=== PATIENT | female | born 1945 | race Caucasian/White ===

== ENCOUNTER 2021-07-10 10:38 | Emergency (ER) | payer MEDICARE, OTHER ==
[~2021-07-10] VITALS: Ht 152.4 cm; Wt 86.2 kg
[~2021-07-10 10:38] MED LIST: ASPIR-LOW81 MG PO; ATORVASTATIN CA80 MG PO; B-12 DOTS500 MCG PO; CALCIUM 600 +1 EAC5 PO; CLARITIN10 M2 PO; FENOFIBRATE160 MG PO; FLUTICASONE PRO16 GM NAS; HUMULIN N100 UNIT/1 SUB-Q; HYDROCHLOROTHIA25 MG PO; KLOR-CON M1010 MEQ PO; LOSARTAN POTAS100 MG PO; MAGNESIUM400 M1 PO; METOPROLOL SUC100 MG PO; METOPROLOL SUCC50 MG PO; MONTELUKAST SOD10 MG PO; PEPCID40 MG PO; POTASSIUM CHLO10 ME1 PO; POTASSIUM CHLOR8 MEQ PO; PRAVASTATIN SOD40 MG PO; SALSALATE750 MG PO; TOPROL XL100 MG PO; VITAMIN C1000 MG PO; VITAMIN D5000 UNI1 PO; WARFARIN SODIUM5 MG PO; ZANAFLEX4 MG PO; ZINC GLUCONATE100 MG PO
--- NOTE | 2021-07-11 17:26 | EKG ---
[facility] [address] [facility] [facility] [address] [place] [address] Signed Normal sinus rhythm Normal ECG No previous ECGs available Confirmed by ALEJANDRO LUGO MD ([id number]) on 07/11/2021 5:25:54 PM Electronically Signed By: ALEJANDRO LUGO MD 07/11/21 1726 PATIENT NAME: ADITYA LEAL PARI Electrocardiogram DATE OF : 41 PHYSICIAN: ALEJANDRO LUGO MD REPORT #: [id number] REPORT IS CONFIDENTIAL AND NOT TO BE RELEASED WITHOUT AUTHORIZATION
== END 2021-07-10 13:10 | disposition home or self-care (01) ==
LOC: ED 10:38
DX: R07.89 Other chest pain (principal); I10 Essential (primary) hypertension; K21.9 Gastro-esophageal reflux disease without esophagitis; Z79.899 Other long term (current) drug therapy; Z79.01 Long term (current) use of anticoagulants
CPT/HCPCS: 36415; 71045; 80053; 83735; 84484; 85025; 85610; 93005; 93010; 99285-25

== ENCOUNTER 2024-10-15 13:40 | Emergency (ER) | payer MEDICARE, OTHER ==
[~2024-10-15] VITALS: Ht 152.4 cm; Wt 98.8 kg
[~2024-10-15 13:40] MED LIST changes: +AMLODIPINE BES2.5 MG PO; +CIPRO500 MG PO; -CLARITIN10 M2 PO; +CLARITIN10 MG PO; +FAMOTIDINE20 MG PO; +LOSARTAN-HCTZ1 EAC1 PO; +METFORMIN HCL500 M1 PO; +ONDANSETRON HCL4 MG PO; +POTASSIUM CHLOR8 ME1 PO
[2024-10-15] MEDS ORDERED: BENZONATATE100 MG PO (18:36)
[2024-10-15] MEDS ORDERED: VENTOLIN HFA18 GM INH (18:36)
[2024-10-15] MEDS ORDERED: AZITHROMYCIN250 MG PO (18:36)
[2024-10-15 18:43] VITALS: BP 163/84
== END 2024-10-15 18:43 | disposition home or self-care (01) ==
LOC: ED 13:40
DX: R05.1 Acute cough (principal); I10 Essential (primary) hypertension; I48.91 Unspecified atrial fibrillation; Z79.51 Long term (current) use of inhaled steroids; Z79.84 Long term (current) use of oral hypoglycemic drugs; Z79.01 Long term (current) use of anticoagulants; Z79.899 Other long term (current) drug therapy
CPT/HCPCS: 71046; 99283-25

== ENCOUNTER 2024-10-19 11:30 | Inpatient (IN) | payer MEDICARE, OTHER ==
[~2024-10-19] VITALS: Ht 152.4 cm; Wt 101.4 kg
[~2024-10-19 11:30] MED LIST changes: +AZITHROMYCIN250 MG PO; +BENZONATATE100 MG PO; +VENTOLIN HFA18 GM INH
--- OUTSIDE RECORDS SUMMARY | 2024-10-19 11:31 | XMS ---
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 [facility] VISIT COUNT (12 MO.) 2 [facility] TOTAL 2 NOTE: Visits indicate total known visits. ED/UCC VISIT TRACKING (12 MO.) 10/19/2024 11:[address] [facility] TYPE: Emergency COMPLAINT: - ABDOMINAL PAIN 10/15/2024 13:[address] [facility] TYPE: Emergency COMPLAINT: - COUGH DIAGNOSES: - Acute cough - Cough, unspecified - Essential (primary) hypertension - continuous churn buttermaker (current) use of anticoagulants - care home (current) use of inhaled steroids - continuous churn buttermaker (current) use of oral hypoglycemic drugs - Other chcf (current) drug therapy - Unspecified atrial fibrillation INPATIENT VISIT TRACKING (12 MO.) No inpatient visits to display in this time frame [email or web address]
[2024-10-19 11:52] LABS: BASOPHILS 0.2 % (0.1-1.2); EOSINOPHILS 0.1 % (0.7-5.8); HEMATOCRIT 25.1 % (34.1-44.9); HEMOGLOBIN 8.3 g/dL (11.2-15.7); LYMPHOCYTES 17.8 % (19.3-51.7); MCH 29.4 PG (25.6-32.2); MCHC 33.1 g/dL (32.2-35.5); MONOCYTES 7.4 % (4.7-12.5); NEUTROPHILS 74.1 % (34.0-71.1); PLATELET COUNT 357 K/uL (182-369); RBC 2.82 M/uL (3.93-5.22)
[2024-10-19] MEDS ORDERED: ondansetron HCL 4 MG/2 ML VIAL IV ONE (12:00)
[2024-10-19] MEDS ORDERED: ALBUTEROL/IPRATROPIUM 3 ML NEB INH ONE (12:00)
[2024-10-19] MEDS ORDERED: HYDROmorphone HCL 1 MG/ML SYR IV PRN (12:00)
[2024-10-19 12:03] LABS: INR 3.28 (0.80-1.30)
[2024-10-19 12:08] LABS: ALBUMIN 3.4 g/dL (3.4-5.0); ALBUMIN/GLOBULIN RATIO 0.81 (1.1-2.4); ANION GAP 14.9 (7-21); BUN/CREATININE RATIO 21.81 (6.0-28.6); CALCIUM 8.6 mg/dL (8.5-10.1); CREATININE, SERUM 1.65 mg/dL (0.55-1.02); POTASSIUM 4.9 mmol/L (3.5-5.1); PROTEIN, TOTAL 7.6 g/dL (6.4-8.2)
[2024-10-19 12:41] LABS: ABO A; ANTIBODY SCREEN NEGATIVE; RH POSITIVE
[2024-10-19 13:24] LABS: BILIRUBIN, URINE NEGATIVE (negative); BLOOD/HGB, URINE NEGATIVE (Negative); KETONE, URINE NEGATIVE (Negative); LEUK ESTERASE, URINE NEGATIVE (negative); NITRITE, URINE NEGATIVE (negative); PH, URINE 6.5 (5-7)
[2024-10-19] MEDS ORDERED: SODIUM CHLORIDE 0.9% 1,000 ML IV SCH (13:45)
[2024-10-19] MEDS ORDERED: PHYTONADIONE 2.5 MG/2.5 ML SYR PO ONE (13:45)
--- NOTE | 2024-10-19 13:50 | NUR ---
PT TRANSPORTED TO UNIT VIA STRETCHER, PT WAS ABLE TO STAND UP AND AMBULATE TO MED/SURG BED. PT TOLERATED WELL, PT REPORT RECIEVED FROM REYNA TOSCANO. PT VITALS WERE STABLE WELL SKIN ASSESSMENT COMPLETED, PT SKIN IS INTACT WITH SMALL SCATTERED BRUISING ON HIPS AND LOWER ABD, PT DENIES ANY FALLS TO CAUSE THIS. PT HAS NO CURRENT CONCERNS AT THIS TIME AND HAS CALL LIGHT IN REACH.
[2024-10-19 13:58] VITALS: BP 128/65
[2024-10-19] MEDS ORDERED: MORPHINE SULFATE 4 MG/ML VIAL IV PRN (15:45)
[2024-10-19] MEDS ORDERED: GUAIFENESIN/CODEINE 5 ML UDC PO PRN (15:45)
[2024-10-19] MEDS ORDERED: BENZONATATE 100 MG CAP PO PRN (15:45)
[2024-10-19] MEDS ORDERED: OXYCODONE HCL 5 MG TAB PO PRN (15:45)
--- NOTE | 2024-10-19 15:57 | NUR ---
PT ASSISTED TO BATHROOM SBA. ADMINISTERED PRN AND STARTED IVF.
[2024-10-19] MEDS ORDERED: ALBUTEROL SULFATE 0.083% 3 ML VIAL INH PRN (16:00)
[2024-10-19] MEDS ORDERED: ALBUTEROL/IPRATROPIUM 3 ML NEB INH SCH (16:00)
--- NOTE | 2024-10-19 16:06 | NUR ---
PT SITTING UP IN BED AT THIS TIME, PT HAS NO CURRENT CONCERNS AND HAS CALL LIGHT IN REACH.
--- NOTE | 2024-10-19 16:33 | NUR ---
MED REC COMPLETE
--- NOTE | 2024-10-19 17:07 | NUR ---
PT SITTING UP IN BED AT THIS TIME, PT HAS NO CURRENT CONCERNS AND NO NEW BRUISING AT THIS TIME. PT HAS CALL LIGHT IN REACH.
--- NOTE | 2024-10-19 17:21 | NUR ---
NO NEW BRUISING NOTED ON PT ABD/HIPS, PT DENIES NEED FOR PAIN MEDICATION AT THIS TIME WITH ACTIVE BOWEL TONES AT THIS TIME AND ABD BINDER IN PLACE.
[2024-10-19 17:35] LABS: BASOPHILS 0.3 % (0.1-1.2); EOSINOPHILS 0.1 % (0.7-5.8); HEMATOCRIT 21.9 % (34.1-44.9); HEMOGLOBIN 7.2 g/dL (11.2-15.7); MCH 29.5 PG (25.6-32.2); MCHC 32.9 g/dL (32.2-35.5); MCV 89.8 fL (79.4-94.8); MONOCYTES 9.5 % (4.7-12.5); NEUTROPHILS 69.7 % (34.0-71.1); PLATELET COUNT 311 K/uL (182-369); RBC 2.44 M/uL (3.93-5.22)
[2024-10-19 17:44] LABS: ANION GAP 10.9 (7-21); BUN/CREATININE RATIO 22.22 (6.0-28.6); CREATININE, SERUM 1.62 mg/dL (0.55-1.02); POTASSIUM 4.9 mmol/L (3.5-5.1)
[2024-10-19 18:00] VITALS: BP 113/57
[2024-10-19 18:01] VITALS: BP 113/57
[2024-10-19 18:29] LABS: IS CROSSMATCH COMPATIBLE
[2024-10-19 18:34] LABS: ABO A; RH POSITIVE
--- NOTE | 2024-10-19 19:30 | NUR ---
REPORT RECEIVED FROM DAY SHIFT RN. PT LYING IN BED ALERT AND ORIENTED. BLOOD TRANSFUSING WNL. NO S/SX OF TRANSFUSION REACTION. PT DENIES NEEDS. WHITE BOARD UPDATED. CALL LIGHT IN REACH.
--- NOTE | 2024-10-19 20:17 | NUR ---
ASKED MD IF HE WOULD LIKE CHEMISTRY LAB DRAWN WITH CBC AT 0000. NO NEW ORDERS RECEIVED, OKAY WITH CHECKING ADDITIONAL LABS IN AM.
[2024-10-19] MEDS ORDERED: MONTELUKAST SODIUM 10 MG TAB PO SCH (21:00)
[2024-10-19] MEDS ORDERED: FAMOTIDINE 20 MG TAB PO SCH ×2 (21:00)
--- NOTE | 2024-10-19 21:09 | NUR ---
EVENING ASSESSMENT COMPLETE. SCHEDULED MEDS ADMIN PER EMAR. PT REPORTS ABD/RIGHT SIDE PAIN 10/12. PRN FOR PAIN ADMIN PER EMAR. PT DENIES NAUSEA OR SOB. UP TO BR WITH FWW AND 1PA TO VOID. GAIT STEADY. PT DID REPORT WEAKNESS WITH AMB. BACK TO BED. ABD BINDER IN PLACE. MULTIPLE BRUISES NOTED WITHIN OUTLINE. SCD'S ON. BLOOD TRANSFUSING WNL. NO TRANSFUSION REACTION NOTED. PT DENIES QUESTIONS OR CONCERNS. CALL LIGHT IN REACH. BED ALARM FOR SAFETY.
--- NOTE | 2024-10-19 22:38 | NUR ---
BLOOD TRANSFUSION COMPLETE. NO S/SX OF TRANSFUSION REACTION. VS WNL. SpO2 89-93% ON RA. 2L/NC AND CPOX PLACED. PT DENIES SOB. HOB ELEVATED. NO FURTHER NEEDS. BED ALARM FOR SAFETY. CALL LIGHT IN REACH.
[2024-10-20] VITALS (11 sets, daily range): BP systolic 100–133; BP diastolic 47–65
--- NOTE | 2024-10-20 00:11 | NUR ---
LAB IN ROOM FOR SCHEDULED DRAW. SpO2 93% ON 2L/NC. HR 80'S. NO NEEDS AT THIS TIME. BED ALARM IN PLACE. CALL LIGHT IN REACH.
[2024-10-20 00:15] LABS: BASOPHILS 0.2 % (0.1-1.2); EOSINOPHILS 0.2 % (0.7-5.8); HEMATOCRIT 25.7 % (34.1-44.9); HEMOGLOBIN 8.5 g/dL (11.2-15.7); MCH 29.8 PG (25.6-32.2); MCHC 33.1 g/dL (32.2-35.5); MCV 90.2 fL (79.4-94.8); MONOCYTES 9.9 % (4.7-12.5); NEUTROPHILS 66.4 % (34.0-71.1); PLATELET COUNT 279 K/uL (182-369); RBC 2.85 M/uL (3.93-5.22)
--- NOTE | 2024-10-20 00:43 | NUR ---
CALL LIGHT ANSWERED. PATIENT UP TO BATHROOM TO VOID USING 1P SBA AND FWW. PATIENT BACK TO BED. PATIENT DENIES FURTHER NEEDS. CALL LIGHT IN REACH. BED ALARM ON. CPOX IN PLACE. SCDs IN PLACE.
--- NOTE | 2024-10-20 01:10 | NUR ---
CALL LIGHT ANSWERED. PT REPORTS BACK/RIGHT SIDE PAIN 11/11. PRN FOR PAIN ADMIN PER EMAR. VS AND I&O OBTAINED. NO FURTHER NEEDS. CALL LIGHT IN REACH.
--- NOTE | 2024-10-20 03:03 | NUR ---
PT RESTING IN BED WITH EYES CLOSED. RESPIRATIONS EVEN. CALL LIGHT IN REACH.
--- NOTE | 2024-10-20 05:21 | NUR ---
LAB IN FOR MORNING DRAW. VS OBTAINED. 2L/NC IN PLACE. SpO2 LOW 90'S. NO C/O PAIN AT THIS TIME. PT DENIES NEEDS. CALL LIGHT IN REACH.
[2024-10-20 05:29] LABS: BASOPHILS 0.3 % (0.1-1.2); EOSINOPHILS 0.3 % (0.7-5.8); HEMATOCRIT 25.2 % (34.1-44.9); HEMOGLOBIN 8.4 g/dL (11.2-15.7); LYMPHOCYTES 28.5 % (19.3-51.7); MCHC 33.3 g/dL (32.2-35.5); MONOCYTES 9.8 % (4.7-12.5); NEUTROPHILS 60.9 % (34.0-71.1); PLATELET COUNT 275 K/uL (182-369)
[2024-10-20 05:39] LABS: ANION GAP 12.1 (7-21); BUN/CREATININE RATIO 19.23 (6.0-28.6); CALCIUM 8.1 mg/dL (8.5-10.1); CREATININE, SERUM 2.08 mg/dL (0.55-1.02); MAGNESIUM 2.5 mg/dL (1.8-2.4); POTASSIUM 5.1 mmol/L (3.5-5.1)
[2024-10-20 05:47] LABS: INR 1.52 (0.80-1.30); PROTIME 17.7 Sec (11.2-14.2)
--- NOTE | 2024-10-20 06:30 | NUR ---
UPDATED REGARDING MORNING LABS AND LOW URINE OUTPUT. NEW TELEPHONE ORDERS RECEIVED VERIFIED WITH READBACK METHOD.
[2024-10-20] MEDS ORDERED: SODIUM CHLORIDE 0.9% 500 ML IV SCH (06:45)
--- NOTE | 2024-10-20 07:09 | NUR ---
REPORT RECEIVED FROM REYNA CUELLAR. PATIENT RESTING IN BED WITH 2LNC IN PLACE AND CPOX AT BEDSIDE, WAKES WHEN THIS RN ENTERS. NO REQUESTS. BED ALARM ON, PATIENT VERBALIZES UNDERSTANDING OF USING CALL LIGHT. CALL LIGHT IN REACH.
--- NOTE | 2024-10-20 07:49 | NUR ---
IV BOLUS COMPLETED, PATIENT IS SALINE LOCKED AT THIS TIME. SCDs PLACED. 3LNC IN PLACE, CPOX AT BEDSIDE. FLY WORKERDiana MANRIQUEZ ARRIVES TO ROOM, REMAINS IN ROOM AT THIS TIME.
--- NOTE | 2024-10-20 08:20 | NUR ---
MEDICATION ADMINISTERED, SEE MAR. LUNDY FROM RESPIRATORY THERAPY JUST FINISHING A BREATHING TREATMENT. PATIENT IS RESTING IN BED WITH HOB ELEVATED. ASSISTED IN BOOSTING PATIENT UP IN BED BY REYNA SINGLETON. BRUISING TO PATIENT'S LOWER ABDOMEN HAS SPREAD SLIGHTLY BEYOND THE OUTLINES. PATIENT REPORTS HER ENTIRE ABDOMEN IS PAINFUL AND TENDER EVEN TO SOFT PALPATION. BOWEL TONES ARE ACTIVE, BUT DISTANT. PATIENT DENIES NAUSEA. PATIENT BEING TRIALED ON ROOM AIR BY KAMRON, RESPIRATORY THERAPY. DURING ASSESSMENT PATIENT SPO2 DECREASES AND SUSTAINS 88%. 2LNC REAPPLIED, PATIENT'S SPO2 SUSTAINS GREATER THAN 92%. PATIENT'S ABDOMINAL BINDER IS IN PLACE, REMOVED FOR ASSESSMENT BUT REAPPLIED. PATIENT STATES " LONG I DON'T MOVE AROUND MY PAIN IS BARELY THERE AT ALL BUT SOON I MOVE IT WILL WORSEN." DENIES PAIN MEDICATION AT THIS TIME. BREAKFAST TRAY ARRIVES. IMAGING CONTACTED TO MAKE SURE PATIENT IS OKAY TO EAT, IMAGING STATES THIS IS OKAY. PATIENT BEGINS EATING BREAKFAST. PATIENT IS REQUESTING JUICE. CALL LIGHT AND PERSONAL BELONGINGS IN REACH.
[2024-10-20] MEDS ORDERED: POLYETHYLENE GLYCOL 3350 1 PACKET PO SCH (09:00)
[2024-10-20] MEDS ORDERED: METOPROLOL SUCCINATE 50 MG TABCR PO SCH (09:00)
[2024-10-20] MEDS ORDERED: AZITHROMYCIN 250 MG TAB PO ONE (09:00)
[2024-10-20] MEDS ORDERED: SENNOSIDES/DOCUSATE 1 EA TAB PO SCH (09:00)
--- NOTE | 2024-10-20 09:00 | NUR ---
UR CLINICAL REVIEW: 2 MN FOR VERSALUS-PER SHELTER SUPERVISOR MEET INPT FOR RECTUS SHEATH HEMATOMA WITH NEED FOR PAIN CONTROL/MONITORING MEDICARE INPT 10/19/24 @ 3984 ORDER MATCHES REG NO AUTH REQUIRED PER MEDICARE GUIDELINES DISCHARGE TO HOME WHEN STABLE
--- NOTE | 2024-10-20 09:35 | NUR ---
PT NOT AVAILABLE FOR VISIT. PROVIDED PRAYER.
--- NOTE | 2024-10-20 09:37 | NUR ---
MD IN TO SEE AND ASSESS PATIENT. ALL QUESTIONS ANSWERED AND CONCERNS ADDRESSED. PATIENT RESTING IN BED WITH HOB ELEVATED, ABDOMINAL BINDER REMAINS IN PLACE. 2LNC IN PLACE WITH CPOX AT BEDSIDE. PATIENT HAS VISITOR PRESENT IN ROOM. PATIENT HAS NO REQUESTS, CALL LIGHT AND PERSONAL BELONGINGS IN REACH.
--- NOTE | 2024-10-20 09:49 | NUR ---
ALERT AND ORIENTED IN BED, FAMILY MEMBER IN ROOM. DEMOGRAPHICS VERIFIED WITH PATIENT. SHE LIVES IN SINGLE LEVEL HOME, ALONE. THERE IS ONE SMALL STEP TO GET INSIDE. STATES SHE HAS NO DME. SHE DRIVES AT [place]. DENIES ANY FINANCIAL DIFFICULTY. SHE IS ABLE TO PAY UTILITIES AND OBTAIN FOOD AND MEDICATIONS WITHOUT DIFFICULTY. STATES SHE PLANS TO DC TO HOME WHEN MEDICALLY READY.
[2024-10-20 10:30] LABS: ANION GAP 12.6 (7-21); BUN/CREATININE RATIO 18.26 (6.0-28.6); CREATININE, SERUM 2.3 mg/dL (0.55-1.02); POTASSIUM 4.6 mmol/L (3.5-5.1)
--- NOTE | 2024-10-20 10:56 | NUR ---
NOTIFIED OF PATIENT'S LAB. NO NEW ORDERS AT THIS TIME. IMAGING ARRIVES FOR PATIENT.
--- NOTE | 2024-10-20 11:04 | NUR ---
PATIENT ASSISTED WITH MINIMAL ASSIST TO TRANSFER FROM BED TO WHEELCHAIR AND IS CURRENTLY OFF THE FLOOR FOR IMAGING. PATIENT'S DAUGHTER IN ROOM, PATIENT'S DAUGHTER UPDATED ON PLAN OF CARE PER PATIENT'S REQUEST. DOMINIC MANRIQUEZ ARRIVES TO ROOM AND BEGINS STRIPPING THE BED.
--- NOTE | 2024-10-20 11:29 | NUR ---
PATIENT RETURNS FROM IMAGING, MINIMAL ASSIST FROM CHAIR TO BED. 2LNC IN PLACE, CPOX AT BEDSIDE, SCDs ON. PATIENT STATES PAIN IS "OKAY RIGHT NOW" AND DECLINES PAIN MEDICATIONS. PATIENT HAS NO OTHER REQUESTS, CALL LIGHT AND PERSONAL BELONGINGS IN REACH. PATIENT'S DAUGHTER REMAINS PRESENT IN ROOM THROUGHOUT.
--- NOTE | 2024-10-20 11:41 | NUR ---
PATIENT NOTED TO COUGH ONCE, HARSH AND BARKY. PRN COUGH MEDICATION ADMINISTERED. PATIENT USES ACAPELLA X10, ACAPELLA REMAINS AT BEDSIDE. PATIENT HAS SCHEDULED NEB TREATMENT DUE SOON. NO OTHER REQUESTS, CALL LIGHT AND PERSONAL BELONGINGS AT BEDSIDE, DAUGHTER REMAINS IN ROOM.
[2024-10-20] MEDS ORDERED: PHARMACY RENAL DOSE ADJUSTMENT 1 DOSE MISC PO SCH (12:00)
[2024-10-20] MEDS ORDERED: LIDOCAINE 2% VISCOUS 6 ML SYR TOP ONE (12:45)
[2024-10-20 12:46] LABS: BILIRUBIN, URINE NEGATIVE (negative); BLOOD/HGB, URINE NEGATIVE (Negative); KETONE, URINE TRACE (Negative); LEUK ESTERASE, URINE TRACE (negative); NITRITE, URINE NEGATIVE (negative); PH, URINE 5.5 (5-7)
[2024-10-20 12:53] LABS: BACTERIA, URINE RARE /hpf (negative); CASTS, URINE NONE SEEN \\lpf; COLLECTION TYPE, URINE CLEAN CATCH; CRYSTALS, URINE NONE SEEN (0-1+); EPITHELIAL CELLS, URINE SQUAMOUS 4+ /lpf (0-1+); RED BLOOD CELLS, URINE 0-1 /hpf (0-5); REFLEX CULTURE, URINE No (No)
--- NOTE | 2024-10-20 13:10 | NUR ---
16FR ZAPIEN CATH PLACED WITH DOMINIC MANRIQUEZ ASSISTING. PATIENT TOLERATES WELL. STAT LOCK TO LEFT THIGH, CATHETER BAG DRAINING FREELY TO LEFT SIDE OF BED. SCANT AMOUNT OF CLEAR, YELLOW URINE NOTED TO TUBING. PATIENT'S SON ARRIVES TO VISIT, DECLAN ALFARO REMAINS IN ROOM AT THIS TIME.
--- NOTE | 2024-10-20 14:00 | NUR ---
PATIENT REPORTS SOME BURNING POST-ZAPIEN CATH INSERTION AND IS REQUESTING PAIN MEDICATION. MEDICATION ADMINISTERED, SEE MAR. ZAPIEN CATHETER IS CLAMPED AT THIS TIME FOR ULTRASOUND. CLEAR, YELLOW URINE NOTED IN TUBING. PATIENT REPORTS THAT SHE HAD SOME MILD DYSURIA PRIOR TO HER HOSPITAL ADMISSION AND THAT HER URINE OUTPUT HAS BEEN DECREASED FOR "ABOUT A WEEK OR SO". PATIENT HAS NO OTHER REQUESTS AT THIS TIME, CALL LIGHT AND PERSONAL BELONGINGS IN REACH.
[2024-10-20 14:19] LABS: BILIRUBIN, URINE NEGATIVE (negative); BLOOD/HGB, URINE TRACE-I (Negative); KETONE, URINE NEGATIVE (Negative); LEUK ESTERASE, URINE NEGATIVE (negative); NITRITE, URINE NEGATIVE (negative); PH, URINE 5.5 (5-7)
[2024-10-20 14:28] LABS: BACTERIA, URINE NONE SEEN /hpf (negative); CASTS, URINE NONE SEEN \\lpf; CRYSTALS, URINE NONE SEEN (0-1+); EPITHELIAL CELLS, URINE SQUAMOUS 1+ /lpf (0-1+); RED BLOOD CELLS, URINE 0-1 /hpf (0-5); WHITE BLOOD CELLS, URINE 0-1 /HPF (0-5)
[2024-10-20 14:29] LABS: COLLECTION TYPE, URINE CLEAN CATCH; REFLEX CULTURE, URINE No (No)
--- NOTE | 2024-10-20 15:09 | NUR ---
PATIENT REPORTS ZAPIEN CATH DISCOMFORT IS DIMINISHING, SCANT AMOUNT OF CLEAR YELLOW URINE NOTED IN TUBING. BAG PREVIOUSLY UNCLAMPED AFTER RENAL ULTRASOUND WAS COMPLETED. PATIENT HAS MULTIPLE VISITORS PRESENT AT THIS TIME. FRESH ICE WATER PROVIDED. NO OTHER REQUESTS, CALL LIGHT AND PERSONAL BELONGINGS IN REACH.
--- NOTE | 2024-10-20 15:43 | NUR ---
PATIENT IS RESTING IN BED WITH HOB ELEVATED, ALL OF HER VISITORS HAVE LEFT. PATIENT REPORTS SHE WILL LIKELY TAKE A NAP NOW. SCDs REAPPLIED. PATIENT HAS REMOVED HER OXYGEN AND IS CURRENTLY ON ROOM AIR AND SUSTAINING AN SPO2>92% ON CPOX. PATIENT EDUCATED ON OXYGEN USE AND OXYGENATION, VERBALIZES UNDERSTANDING OF WEARING OXYGEN SHOULD HER OXYGEN LEVEL DECREASE. ZAPIEN CATH IS FREELY DRAINING TO BEDSIDE WITH CLEAR, YELLOW URINE NOTED TO BE DRAINING THROUGH TUBING. NO REQUESTS, CALL LIGHT AND PERSONAL BELONGINGS IN REACH.
--- NOTE | 2024-10-20 15:47 | NUR ---
IN PATIENT'S CPOX IS ALARMING. 2LNC REAPPLIED, PATIENT VERBALIZES UNDERSTANDING. NO REQUESTS, CALL LIGHT AND PERSONAL BELONGINGS IN REACH.
--- NOTE | 2024-10-20 16:49 | NUR ---
PATIENT RESTING IN BED WITH TWO VISITORS AT BEDSIDE. FRESH ICE WATER PROVIDED. SCANT AMOUNT OF CLEAR, YELLOW URINE NOTED IN ZAPIEN CATH BAG. PATIENT REQUESTS HER VISITORS BE UPDATED ON PLAN OF CARE - COMPLETED, ALL QUESTIONS ANSWERED. PATIENT HAS NO OTHER REQUESTS, CALL LIGHT AND PERSONAL BELONGINGS IN REACH.
--- NOTE | 2024-10-20 20:13 | NUR ---
Patient in bed, alert and oriented x3, no acute distress. Patient in on 2L nc, respirations non labored, sp02 93%. Abdominal binder in place. Notable lower abdominal brusing-previously marked. Patient report 6/10 right sided abdominal pain. Oxycodone 5mg po and tessalon perles 100mg po admin at this time for cough/pain. Patient denies further needs. Fresh water provided to patient. Call light within reach.
--- NOTE | 2024-10-20 21:03 | NUR ---
MILITARY COOK OBTAINED VITALS AND I&O. ZAPIEN BAG EMPTIED. PT STATES NO NEEDS AT THIS TIME. CALL LIGHT WITHIN REACH.
[2024-10-21] VITALS (8 sets, daily range): BP systolic 105–133; BP diastolic 52–75
--- NOTE | 2024-10-21 01:00 | NUR ---
Patient resting in bed, eyes closed, respirations non labored. Pt on 2L oxygen per nc, sp02 93%. Call light within reach.
--- NOTE | 2024-10-21 03:13 | NUR ---
THIS RN ASSUMING CARE OF PATIENT. PATIENT RESTING IN BED. DENIES NEEDS AT THIS TIME. CALL LIGHT IN REACH.
[2024-10-21 05:21] LABS: BASOPHILS 0.3 % (0.1-1.2); EOSINOPHILS 1.5 % (0.7-5.8); HEMOGLOBIN 7.3 g/dL (11.2-15.7); LYMPHOCYTES 25.1 % (19.3-51.7); MCH 29.7 PG (25.6-32.2); MCHC 33.2 g/dL (32.2-35.5); MCV 89.4 fL (79.4-94.8); MONOCYTES 10.9 % (4.7-12.5); NEUTROPHILS 61.8 % (34.0-71.1); PLATELET COUNT 260 K/uL (182-369); RBC 2.46 M/uL (3.93-5.22)
[2024-10-21 05:34] LABS: ANION GAP 11.1 (7-21); BUN/CREATININE RATIO 19.4 (6.0-28.6); CALCIUM 8.1 mg/dL (8.5-10.1); CREATININE, SERUM 2.37 mg/dL (0.55-1.02); MAGNESIUM 2.4 mg/dL (1.8-2.4); POTASSIUM 5.1 mmol/L (3.5-5.1)
--- NOTE | 2024-10-21 05:44 | NUR ---
LINE THERAPIST OBTAINED VITALS AND I&O. ZAPIEN BAG EMPTIED. PT STATES NO NEEDS AT THIS TIME. CALL LIGHT WITHIN REACH.
[2024-10-21 05:47] LABS: INR 1.17 (0.80-1.30); PROTIME 14.4 Sec (11.2-14.2)
--- NOTE | 2024-10-21 06:47 | NUR ---
THIS RN CALLED MD CALDWELL REGARDING PATIENTS MORNING LAB RESULTS. NO NEW ORDERS AT THIS TIME.
--- NOTE | 2024-10-21 07:20 | NUR ---
RECIEVED REPORT BY REYNA PEMBERTON. PATIENT AWAKE, SHE IS ALERT AND ORIENTED. SHE HAS HER ABDOMEN BINDER IN PLACE. PATIENT WAS WEANED TO ROOM AIR, SAT >92%. PATIENT REPORTS NO NEEDS, CALL LIGHT AT REACH.
[2024-10-21] MEDS ORDERED: FUROSEMIDE 100 MG/10 ML VIAL IV ONE (08:00)
--- NOTE | 2024-10-21 08:15 | NUR ---
INTO SEE PATIENT. PATIENT STATES SHE IS GOING HOME WHEN MEDICALLY CLEARED. PATIENT LIVES ALONE. NO CM NEEDS AT THIS TIME. PATIENT POTENTIALLY COULD BENEFIT FROM HH PENDING PT/OT FUTHER RECCOMENDATIONS.
[2024-10-21] MEDS ORDERED: LACTULOSE 20 GM/30 ML CUP PO ONE (11:45)
[2024-10-21 12:34] LABS: ANION GAP 11.1 (7-21); BUN/CREATININE RATIO 22.06 (6.0-28.6); CALCIUM 8.6 mg/dL (8.5-10.1); CREATININE, SERUM 2.13 mg/dL (0.55-1.02); POTASSIUM 5.1 mmol/L (3.5-5.1)
--- NOTE | 2024-10-21 12:53 | NUR ---
PT BACK TO BED, REQUESTS EDUCATION ON CURRENT ILLNESS IN WRITTEN FORM, GIVEN. PT STATES SHE WOULD LIKE TO REST AT THIS TIME, STATES NO FURTHER NEEDS, CALL LIGHT WITHIN REACH.
--- NOTE | 2024-10-21 14:45 | NUR ---
THIS RN COLLECTED URINE SAMPLE FROM ZAPIEN CATHETER, CLAMPED FOR 30 MINUTES FOR SAMPLE OUT OF PORT. PT TOLERATED, NO ISSUES. PT REQUESTED MEDICINE FOR COUGH AT THIS TIME, PRN MEDS GIVEN - SEE JUL. PT DAUGHTER AT BEDSIDE, INQUIRING ABOUT A SHOWER CHAIR, GRAB BARS AND SOME DME EQUIPMENT WHEN PATIENT IS DISCHARGED. CASE MGMT - SHEKHAR NOTIFIED AND WILL COME MEET WITH DAUGHTER/PATIENT IN THE ROOM.
[2024-10-21 14:50] LABS: CREATININE, RANDOM URINE 20.73 mg/dL (NOT ESTABLISHED)
--- NOTE | 2024-10-21 16:17 | NUR ---
PT BACK TO BED AFTER SHOWER, ABDOMINAL BINDER IN PLACE. PT STATES NO FURTHER NEEDS AT THIS TIME, CALL LIGHT WTIHIN REACH.
--- NOTE | 2024-10-21 17:19 | NUR ---
PT HAS EMESIS, CONTINUES TO HAVE NAUSEA. THIS RN CALLS DR. JAVI MD STATES TO ORDER ZOFRAN 4MG Q6PRN. ORDER ENTERED, REPEAT BACK PERFORMED.
[2024-10-21] MEDS ORDERED: ondansetron HCL 4 MG/2 ML VIAL IV PRN (17:30)
--- NOTE | 2024-10-21 19:41 | NUR ---
REPORT RECEIVED FROM DAY SHIFT RN. PT RESTING IN BED. SAFETY PRECAUTIONS MAINTAINED. CALL LIGHT WITHIN REACH. WILL CONITNUE TO MONITOR.
--- NOTE | 2024-10-21 20:25 | NUR ---
PT ASSESSED AND MEDICATIONS GIVEN. VSS. PT WEARING O2 AT 2L NC, SATING WELL. ZAPIEN IN PLACE AND DRAINING WELL PER GRAVITY, GOOD OUTPUT NOTED. PT CONTINUES ON THE FLUID RESTRICTION OF 1500ML/DAY. ABDOMINAL BINDER IN PLACE. SAFETY PRECAUTIONS MAINTAINED. CALL LIGHT WITHIN REACH. WILL CONTINUE TO MONITOR.
[2024-10-22] VITALS (10 sets, daily range): BP systolic 112–135; BP diastolic 51–68
[2024-10-22 05:25] LABS: BASOPHILS 0.2 % (0.1-1.2); EOSINOPHILS 0.9 % (0.7-5.8); HEMOGLOBIN 8.3 g/dL (11.2-15.7); MCHC 33.2 g/dL (32.2-35.5); MCV 90.3 fL (79.4-94.8); MONOCYTES 8.9 % (4.7-12.5); NEUTROPHILS 70.6 % (34.0-71.1); PLATELET COUNT 333 K/uL (182-369); RBC 2.77 M/uL (3.93-5.22)
--- NOTE | 2024-10-22 05:35 | NUR ---
FASHION BUYER OBTAINED VITALS AND I&O. ZAPIEN BAG EMPTIED. PT STATES NO NEEDS AT THIS TIME. CALL LIGHT WITHIN REACH.
[2024-10-22 05:38] LABS: ANION GAP 15.1 (7-21); BUN/CREATININE RATIO 24.71 (6.0-28.6); CALCIUM 8.9 mg/dL (8.5-10.1); CREATININE, SERUM 1.74 mg/dL (0.55-1.02); MAGNESIUM 2.6 mg/dL (1.8-2.4); POTASSIUM 4.1 mmol/L (3.5-5.1)
[2024-10-22 06:04] LABS: INR 1.09 (0.80-1.30); PROTIME 13.7 Sec (11.2-14.2)
--- NOTE | 2024-10-22 06:10 | NUR ---
PT RESTED WELL DURING THE SHIFT. VSS. PT WEARING O2 AT 2L NC, SATING WELL. PT ON CPOX. ZAPIEN IN PLACE AND DRAINING WELL PER GRAVITY, GOOD OUTPUT NOTED. PT UP X1 WITH WALKER TO BATHROOM. ABDOMINAL BINDER IN PLACE. SAFETY PRECAUTIONS MAINTAINED. CALL LIGHT WITHIN REACH. WILL CONTINUE TO MONITOR.
--- NOTE | 2024-10-22 07:10 | NUR ---
REPORT RECIEVED FROM REYNA SILVERIO. PATIENT RESTING IN BED ON HER BACK WITH HER EYES CLOSED. EVEN AND UNLABORED RESPIRATIONS NOTED. CALL LIGHT AND PERSONAL BELONGINGS ARE WITHIN REACH.
--- NOTE | 2024-10-22 08:54 | NUR ---
DOMINIC JENSEN IN ROOM ASSISTING PATIENT TO BATHROOM. PATIENT WITHOUT ANY NEEDS FROM THIS RN AT THIS TIME.
--- NOTE | 2024-10-22 09:20 | NUR ---
PATIENT OUT OF ROOM WORKING WITH OT AT THIS TIME.
--- NOTE | 2024-10-22 09:30 | NUR ---
INTO SEE PATIENT. PATIENT PLANS TO D/C HOME AT TIME OF DISCHARGE. IMM LETTER COMPLETED. NO CM NEEDS.
--- NOTE | 2024-10-22 09:40 | NUR ---
PATIENT RESTING IN BED. DR CALDWELL AT BEDSIDE. PATIENT REPORTING NOT ABLE TO HAVE A BOWEL MOVEMENT, DR CALDWELL STATES HE WILL ADD SUPPOSITORY ORDER. PATIENT ASSESSMENT COMPLETED. PATIENT WITHOUT FURHTER NEEDS AT THIS TIME. CALL LIGHT AND PERSONAL BELONIGNGS ARE WITHIN REACH. FRESH ICE WATER PROVIDED.
[2024-10-22] MEDS ORDERED: bisacodyL 10 MG SUPP PR ONE (09:45)
--- NOTE | 2024-10-22 09:45 | NUR ---
PATIENT REQUESTING TO NOT HAVE CPOX. DR CALDWELL NOTIFIED AND GAVE VERBAL ORDER FOR PATIENT TO NOT USE CPOX.
--- NOTE | 2024-10-22 10:15 | NUR ---
PATIENT MEDICATED PER EMAR. SUPPOSITORY GIVEN, PATIENT TOLERATED WELL. PATIENT WITHOUT FURTHER NEEDS AT THIS TIME. CALL LIGHT AND PERSONAL BELONGINGS ARE WITHIN REACH.
--- NOTE | 2024-10-22 12:39 | NUR ---
PATIENT AMBULATES WITH SUPERVISION ONLY AND FWW TO RESTROOM TO SIT ON TOILET. PATIENT VERBALIZES UNDERSTANDING OF PULLING CORD WHEN FINISHED.
--- NOTE | 2024-10-22 12:53 | NUR ---
PATIENT IS IN HER BED AT THIS TIME, NEEDED ASSISTANCE TO THE REST ROOM, CHARTED VITALS AND I&O'S, CALL LIGHT WITH IN REACH AND NOTHING ELSE NEEDED AT THIS TIME. RESPITORY SHOWED UP AND SHE IS GETTING A TREATMENT NOW.
--- NOTE | 2024-10-22 13:45 | NUR ---
PATIENT SITTING UP IN BED RESTING WITH HER EYES CLOSED. EVEN AND UNLABORED RESPIRATIONS NOTED. CALL LIGHT AND PERSONAL BELONGINGS ARE WITHIN REACH.
--- NOTE | 2024-10-22 14:53 | NUR ---
PATIENT SITTING UP IN BED VISITING WITH HER DAUGHTER. PATIENT WITHOUT FURTHER NEEDS AT THIS TIME. CALL LIGHT AND PERSONAL BELONGINGS ARE WITHIN REACH.
[2024-10-22 15:01] LABS: OSMOLALITY 279 mOsm/kg (280-303)
--- NOTE | 2024-10-22 15:03 | NUR ---
IV FLUSHED WITH 10ML OF NS, DRESSING INTACT. PATIENT VISITOR LEFT, PATIENT REQUESTING TO GET SOME REST THEN WOULD LIKE TO GET UP AND AMBULATE AT A LATER TIME. PATIENT WITHOUT FURTHER NEEDS AT THIS TIME. CALL LIGHT AND PERSONAL BELONGINGS ARE WITHIN REACH.
--- NOTE | 2024-10-22 16:55 | NUR ---
PATIENT RESTING IN BED WITH HER EYES CLOSED. EVEN AND UNLABORED RESPIRATIONS NOTED. CALL LIGHT AND PERSONAL BELONGINGS ARE WITHIN REACH.
--- NOTE | 2024-10-22 17:07 | NUR ---
HELD TREATMENT PT IS SLEEPING AND HAD REQUESTED ON LAST TREATMENT TO NOT BE DESTRUBED BECAUSE SHE WAS NEEDING REST .
[2024-10-22] MEDS ORDERED: FLUTICASONE PROPIONATE 50 MCG BTL NAS SCH (18:30)
--- NOTE | 2024-10-22 19:36 | NUR ---
REPORT RECEIVED FROM DAY SHIFT RN. PT RESTING IN BED. PT DENIED ANY PAIN. DAFETY PRECAUTIONS MAINTAINED. CALL LIGHT WITHIN REACH. WILL CONTINUE TO MONITOR.
--- NOTE | 2024-10-22 20:55 | NUR ---
PT ASSESSED AND MEDICATIONS GIVEN. VSS. PT DENIED ANY PAIN. ZAPIEN IN PLACE AND DRAINING WELL PER GRAVITY, GOOD OUTPUT NOTED. ZAPIEN CARE DONE. PT CONTINUES TO REFUSE TO WEAR SCD'S. SAFETY PRECAUTIONS MAINTAINED. CALL LIGHT WITHIN REACH. WILL CONTINUE TO MONITOR.
[2024-10-22] MEDS ORDERED: FAMOTIDINE 20 MG TAB PO SCH (21:00)
[2024-10-23] VITALS (8 sets, daily range): BP systolic 116–141; BP diastolic 49–58
--- NOTE | 2024-10-23 03:23 | NUR ---
ASSISTED TO BR, SBA W/ FWW. PT VOID X 1 AND SMALL LOOSE BM. FRESH ICE WATER PROVIDED. CALL LIGHT WITHIN REACH.
[2024-10-23 05:32] LABS: BASOPHILS 0.3 % (0.1-1.2); EOSINOPHILS 1.1 % (0.7-5.8); HEMATOCRIT 24.7 % (34.1-44.9); HEMOGLOBIN 8.4 g/dL (11.2-15.7); LYMPHOCYTES 20.3 % (19.3-51.7); MCV 88.2 fL (79.4-94.8); MONOCYTES 9.3 % (4.7-12.5); NEUTROPHILS 68.6 % (34.0-71.1); PLATELET COUNT 368 K/uL (182-369)
[2024-10-23 05:44] LABS: BUN/CREATININE RATIO 26.61 (6.0-28.6); CALCIUM 9.3 mg/dL (8.5-10.1); CREATININE, SERUM 1.24 mg/dL (0.55-1.02); MAGNESIUM 2.4 mg/dL (1.8-2.4)
[2024-10-23 05:55] LABS: INR 1.08 (0.80-1.30); PROTIME 13.6 Sec (11.2-14.2)
--- NOTE | 2024-10-23 06:15 | NUR ---
PT RESTED WELL THROUGHOUT THE SHIFT. VSS. PT DENIED ANY PAIN. PT UP TO THE BATHROOM SBA WITH WALKER. PT HAD MULTIPLE BM'S. ZAPIEN IN PLACE AND DRAINING WELL PER GRAITY, GOOD OUTPUT NOTED. SAFETY PRECAUTIONS MAINTAINED. CALL LIGHT WITHIN REACH. WILL CONTINUE TO MONITOR.
--- NOTE | 2024-10-23 07:10 | NUR ---
REPORT RECIEVED FROM REYNA SILVERIO. PATIENT SITTING UP IN BED AND WITHOUT ANY NEEDS AT THIS TIME. CALL LIGHT AND PERSONAL BELONGINGS ARE WITHIN REACH.
[2024-10-23] MEDS ORDERED: FUROSEMIDE 40 MG/4 ML VIAL IV ONE (07:45)
--- NOTE | 2024-10-23 07:48 | NUR ---
PATIENT IN CHAIR AT THIS TIME. DRILLING MANAGER CHARTED HOURLY ROUNDS, DRILLING MANAGER CHANGED PATIENTS LINENS AND ASSISTED PATIENT FROM BED TO CHAIR. CALL LIGHT WITHIN REACH, NO FURTHER NEEDS.
--- NOTE | 2024-10-23 08:20 | NUR ---
PATIENT REPORTING CHEST/ABD PAIN FROM COUGHING. DR CALDWELL NOTIFIED AND STATES HE WILL ADD PRN ORDER FOR TYLENOL.
[2024-10-23] MEDS ORDERED: ACETAMINOPHEN 500 MG TAB PO PRN (08:30)
--- NOTE | 2024-10-23 08:51 | NUR ---
PATIENT IS NON-COMPLIANT WITH CPAP FOR JARRET. DISCUSSED CONCERN AND PLANS WITH PRIMARY NURSE, CHARGE NURSE AND DR CALDWELL. CPOX AND O2 ORDER TO REMAIN IN PLACE AND STAFF TO DOCUMENT REFUSAL BY PATIENT OF EITHER ORDER.
--- NOTE | 2024-10-23 09:14 | NUR ---
PATIENT MEDICATED PER EMAR. PATIENT TRANSFERED BACK TO BED FROM CHAIR VIA SBA WITH THE FWW. PATIENT RESTING IN BED AND WANTING TO SLEEP. PATIENT ASSESSMENT COMPLETED. IV FLUSHED WITH 10ML OF NS, DRESSING IS INTACT. PATIENT WITHOUT FURTHER NEEDS AT THIS TIME. CALL LIGHT AND PERSONAL BELONGINGS ARE WITHIN REACH. VITAL SIGNS TAKEN AND ARE STABLE.
--- NOTE | 2024-10-23 09:48 | NUR ---
PATIENT IN BED AT THIS TIME. MENHADEN VESSEL PILOT CHARTED I&O'S, REYNA BERNSTEIN CHARTED VITALS. [facility], NO FURTHER NEEDS.
[2024-10-23] MEDS ORDERED: guaiFENesin 600 MG TABCR PO SCH (10:15)
--- NOTE | 2024-10-23 10:25 | NUR ---
PATIENT IN BED AT THIS TIME. DIETITIAN TEACHER PROVIDED PATIENT WITH CATHETER CARE. CALL LIGHT WITHIN REACH, NO FURTHER NEEDS AT THIS BHAVIK.E
--- NOTE | 2024-10-23 10:49 | NUR ---
PATIENT RESTING IN BED WITH HER EYES CLOSED. EVEN AND UNLABORED RESPIRATIONS NOTED. CALL LIGHT AND PERSONAL BELONGINGS ARE WITHIN REACH. PATIENT IS ON ROOM AIR AND IS 90%. CPOX AT BEDSIDE.
--- NOTE | 2024-10-23 11:55 | NUR ---
RT AT BEDSIDE.
--- NOTE | 2024-10-23 12:20 | NUR ---
PATIENT MEDICATED PER EMAR. PATIENT TRANSFERED FROM BED TO CHAIR FOR LUNCH. FRESH ICE WATER PROVIDED. PATIENT WITHOUT FURTHER NEEDS AT THIS TIME. CALL LIGHT AND PERSONAL BELONGINGS ARE WITHIN REACH.
--- NOTE | 2024-10-23 13:25 | NUR ---
PATIENT UP WALKING THE HALLS WITH DOMINIC TERESA.
--- NOTE | 2024-10-23 13:32 | NUR ---
PATIENT IN BED AT THIS TIME. TUMBLER DRIER OPERATOR CHARTED VITALS AND I&O'S. PATIENT WALKED 1 LAP AROUND HALLS. CALL LIGHT WITHIN REACH, NO FURTHER NEEDS.
--- NOTE | 2024-10-23 15:15 | NUR ---
PATIENT RESTING IN BED. WARM BLANKET PROVIDED. PATIENT STATES SHE WOULD LIKE TO TAKE A NAP. PATIENT WITHOUT FURTHER NEEDS AT THIS TIME. CALL LIGHT AND PERSONAL BELONGINGS ARE WITHIN REACH.
--- NOTE | 2024-10-23 15:17 | NUR ---
PT C/O COUGH. MEDICATED WITH TESSALON RADHA X1.
[2024-10-23 15:38] LABS: URINE OSMOLALITY 228 mOsm/kg (50-800)
--- NOTE | 2024-10-23 16:30 | NUR ---
PT JUST HAD COMPLETED BREATHING TREATMENT WITH RT, RT CAME TO THIS NURSE AND STATES PATIENT IS HAVING PAIN DUE TO COUGHING POST TREATMENT. PRN MEDS GIVEN FOR 4/10 ABDOMINAL PAIN FROM COUGHING. PT NOW ON THE PHONE WITH FRIEND, NO OTHER NEEDS AT THIS TIME. CALL LIGHT WITHIN REACH.
--- NOTE | 2024-10-23 16:31 | NUR ---
PATIENT BED AT THIS TIME. MUSHROOM PACKER CHARTED HOURLY ROUNDS. MUSHROOM PACKER ASKED PATIENT IF SHE WANTED A SHOWER OR BED BATH, PATIENT STATED SHE DID NOT WANT A SHOWER OF NOW. CALL LIGHT WITHIN REACH, NO FURTHER NEEDS AT THIS TIME.
--- NOTE | 2024-10-23 17:48 | NUR ---
PATIENT IN BED AT THIS TIME. SUPERINTENDENT CAR CONSTRUCTION CHARTED VITALS AND I&O'S. CALL LIGHT WITHIN REACH, NO FURTHER NEEDS.
--- NOTE | 2024-10-23 19:00 | NUR ---
PATIENT MEDICATED PER EMAR. WARM BLANKET AND FRESH ICE WATER PROVIDED. PATIENT WITHOUT FURTHER NEEDS AT THIS TIME. CALL LIGHT AND PERSONAL BELONGINGS ARE WITHIN REACH.
--- NOTE | 2024-10-23 19:58 | NUR ---
RECEIVED REPORT. PT ALERT IN BED, NO NEEDS PRESENTLY. CALL LIGHT INR EACH
--- NOTE | 2024-10-23 20:04 | NUR ---
PATIENT LAYING IN BED. CATHETER CARE AND SHARON CARE WERE DONE. VITAL SIGNS AND I&OS WERE COMPLETED, ZAPIEN WAS EMPTIES. CALL LIGHT IN REACH AND NO FURTHER NEEDS AT THIS TIME.
--- NOTE | 2024-10-23 20:56 | NUR ---
ADITYA ASKED WHY SHE WAS DOING BREATHING TREATMENTS HERE AT THE HOSPITAL BECAUSE SHE DOES NOT DO THEM AT HOME. ADITYA STATED THAT SHE DOES NOT WANT SCHEDULED INHALED RESPIRATORY MEDICATIONS. RT ADVISED THAT SHE WOULD MAKE THE TREATMENTS PRN AND EXPLAINED THAT WAS NEEDED. ADITYA WAS INSTRUCTED TO RING FOR THE NURSE AND ASK HER TO CALL RT FOR ANY PRN RESPIRATORY MEDICATIONS SHE MAY WANT.
--- NOTE | 2024-10-23 21:32 | NUR ---
PT ALERT IN BED, WATCHING TV. CALL LIGHT IN REACH
--- NOTE | 2024-10-23 23:08 | NUR ---
ASSESSMENT, EVENING MEDS. GIVEN LATE D/T NURSE AVAILABILTY, DETAINED IN OTHER ROOM. REFILLED ICE WATER, READIED PT FOR BED. NO OTHER NEEDS, CALL LIGHT IN REACH
[2024-10-24] VITALS (9 sets, daily range): BP systolic 120–140; BP diastolic 53–72
--- NOTE | 2024-10-24 00:28 | NUR ---
PT RESTING IN BED WITH EYES CLOSED, RISE AND FALL OF CHEST OBSERVED. CALL LIGHT IN REACH
--- NOTE | 2024-10-24 02:35 | NUR ---
PATIENT IS LAYING IN BED. VITAL SIGNS AND I&OS WERE DONE. CALL LIGHT IN REACH AND NO FURTHER NEEDS AT THIS TIME.
--- NOTE | 2024-10-24 02:43 | NUR ---
PT RESTING IN BED WITH EYES CLOSED, RISE AND FALL OF CHEST OBSERVED. CALL LIGHT IN REACH
--- NOTE | 2024-10-24 03:21 | NUR ---
PATIENT PUSHED CALL LIGHT TO USE THE BATHROOM. PATIENT WAS ASSISTED WITH FWW TO BATHROOM. CHUX PAD WAS CHANGED AND SHARON CARE WAS DONE. PATIENT WAS ASSISTED BACK TO BED. PATIENT IS LAYING IN BED WITH CALL LIGHT IN REACH AND NO FURTHER NEEDS AT THIS TIME.
--- NOTE | 2024-10-24 05:02 | NUR ---
PT RESTING IN BED WTIH EYES CLOSED, RISE AND FALL OF CHEST OBSERVED. CALL LIGHT I NREACH
[2024-10-24 05:47] LABS: BASOPHILS 0.4 % (0.1-1.2); EOSINOPHILS 2.5 % (0.7-5.8); HEMATOCRIT 23.6 % (34.1-44.9); HEMOGLOBIN 8.1 g/dL (11.2-15.7); LYMPHOCYTES 22.3 % (19.3-51.7); MCH 30.6 PG (25.6-32.2); MCHC 34.3 g/dL (32.2-35.5); MCV 89.1 fL (79.4-94.8); MONOCYTES 9.9 % (4.7-12.5); NEUTROPHILS 64.2 % (34.0-71.1); PLATELET COUNT 350 K/uL (182-369); RBC 2.65 M/uL (3.93-5.22)
[2024-10-24 05:58] LABS: ANION GAP 10.6 (7-21); BUN/CREATININE RATIO 24.36 (6.0-28.6); CALCIUM 8.8 mg/dL (8.5-10.1); CREATININE, SERUM 1.19 mg/dL (0.55-1.02); MAGNESIUM 1.9 mg/dL (1.8-2.4); POTASSIUM 3.6 mmol/L (3.5-5.1)
[2024-10-24 06:32] LABS: INR 1.06 (0.80-1.30); PROTIME 13.4 Sec (11.2-14.2)
--- NOTE | 2024-10-24 07:14 | NUR ---
REPORT RECIEVED FROM REYNA RUCKER. PATIENT RESTING IN BED WITH HOB ELEVATED AND HER EYES CLOSED. EVEN AND UNLABORED RESPIRATIONS NOTED. CALL LIGHT AND PERSONAL BELONGINGS ARE WITHIN REACH.
--- NOTE | 2024-10-24 08:21 | NUR ---
RESPONDED TO PATIENT CALL LIGHT. PT REPORTS NEEDING TO USE THE RESTROOM. PT AMBULATES WITH WALKER TO RESTROOM. PASSED MODERATE BM. SHARON CARE PERFORMED. PT SETTLED INTO CHAIR, BLINDS PULLED, BREAKFAST RECEIVED. PT BEDDING CHANGED. CALL LIGHT WITHIN REACH.
--- NOTE | 2024-10-24 08:32 | NUR ---
PATIENT ASSESSMENT COMPLETED. PATIENT SITTING UP IN HER CHAIR EATING BREAKFAST. PATIENT IS WITHOUT COMPLAINTS OF PAIN AT THIS TIME. PATIENT IS 93% ON ROOM AIR, WITH CPOX AT BEDSIDE. PATIENT WITHOUT FURTHER NEEDS AT THIS TIME. CALL LIGHT AND PERSONAL BELONGINGS ARE WITHIN REACH. VITAL SIGNS TAKEN AND ARE STABLE.
--- NOTE | 2024-10-24 09:28 | NUR ---
AMBULATED WITH PATIENT 1 1/2 LAPS IN [facility], [facility] FWW. PATIENT NOW TO BED. RUPALI TAKEN OUT UPON RN REQUEST. CALL LIGHT IN REACH. WARM BLANKET GIVEN. NO FURTHER NEEDS AT THIS TIME.
--- NOTE | 2024-10-24 09:55 | NUR ---
PATIENT SITTING UP IN BED AND WITHOUT ANY NEEDS AT THIS TIME. CALL LIGHT AND PERSONAL BELONGINGS ARE WITHIN REACH.
[2024-10-24 10:21] LABS: ANION GAP 8.6 (7-21); BUN/CREATININE RATIO 22.55 (6.0-28.6); CALCIUM 9.3 mg/dL (8.5-10.1); CREATININE, SERUM 1.33 mg/dL (0.55-1.02); POTASSIUM 3.6 mmol/L (3.5-5.1)
--- NOTE | 2024-10-24 10:38 | NUR ---
PATIENT REPORTING 7/10 PAIN FROM COUGHING. PRN DOSE OF PAIN MEDICATION ADMINISTERED. FRESH ICE WATER PROVIDED. PATIENT IS 94% ON ROOM AIR AT THIS TIME. CPOX AT BEDSIDE. PATIENT WITHOUT FURTHER NEEDS AT THIS TIME. CALL LIGHT AND PERSONAL BELONGINGS ARE WITHIN REACH.
--- NOTE | 2024-10-24 11:17 | NUR ---
PATIENT REQUESTING TO GET UP FOR A WALK AT THIS TIME. DOMINIC MORENO IN ROOM TO ASSIST PATIENT.
--- NOTE | 2024-10-24 12:23 | NUR ---
PATIENT SITTING UP IN CHAIR EATING LUNCH. PATIENT REPORTS "WELL IT'S FEELING OKAY RIGHT NOW LONG I'M NOT COUGHING" WHEN ASKED ABOUT HER PAIN LEVEL. PATIENT DENIES ANY NEEDS AT THIS TIME. CALL LIGHT AND PERSONAL BELONGINGS ARE WITHIN REACH.
--- NOTE | 2024-10-24 13:20 | NUR ---
PATIENT CALLED REQUESTING A NEW HEAT BACK. NEW HEAT BACK PROVIDED. PATIENT ASSISTED BACK TO BED VIA 1 PERSON ASSIST WITH THE FWW. PATIENT FAMILY REQUESTING PATIENT TO HAVE ANOTHER CT DUE TO PATIENT INCREASED ABD PAIN WHEN COUGHING. DR CHATTERJEE NOTIFIED. STATES HE WILL GO IN AND SPEAK WITH PATIENT AND PATIENT'S FAMILY. MD WITH NO NEW ORDERS AT THIS TIME.
[2024-10-24] MEDS ORDERED: LIDOCAINE HCL 4% 1 EACH PATCH TD SCH (14:01)
--- NOTE | 2024-10-24 14:11 | NUR ---
GOT PT FRESH ICE WATER AND CLEANED UP ROOM. PT HAD TWO VISITORS. CALL LIGHT WITHIN REACH. PT REPORTED NEEDING NOTHING ELSE AT THIS TIME.
[2024-10-24] MEDS ORDERED: OXYCODONE HCL 5 MG TAB PO PRN (14:15)
[2024-10-24] MEDS ORDERED: GUAIFENESIN/DEXTROMETHORPHAN 5 ML SYRUP PO PRN (14:15)
--- NOTE | 2024-10-24 14:30 | NUR ---
PATIENT MEDICATED PER EMAR. FRESH HEAT PACK PROVIDED. IV FLUSHED WITH 10ML OF NS, DRESSING IS INTACT. IV IS SALINE LOCKED. PATIENT WITHOUT FURTHER NEEDS AT THIS TIME. CALL LIGHT AND PERSONAL BELONGINGS ARE WITHIN REACH.
[2024-10-24 15:12] LABS: BASOPHILS 0.4 % (0.1-1.2); EOSINOPHILS 2.8 % (0.7-5.8); HEMATOCRIT 23.2 % (34.1-44.9); HEMOGLOBIN 7.9 g/dL (11.2-15.7); LYMPHOCYTES 17.9 % (19.3-51.7); MCH 30.6 PG (25.6-32.2); MCHC 34.1 g/dL (32.2-35.5); MCV 89.9 fL (79.4-94.8); MONOCYTES 9.3 % (4.7-12.5); NEUTROPHILS 68.7 % (34.0-71.1); PLATELET COUNT 351 K/uL (182-369); RBC 2.58 M/uL (3.93-5.22)
[2024-10-24 15:21] LABS: INR 1.04 (0.80-1.30); PROTIME 13.2 Sec (11.2-14.2)
[2024-10-24 15:22] LABS: BUN/CREATININE RATIO 24.34 (6.0-28.6); CALCIUM 8.6 mg/dL (8.5-10.1); CREATININE, SERUM 1.15 mg/dL (0.55-1.02)
--- NOTE | 2024-10-24 16:08 | NUR ---
PATIENT MEDICATED PER EMAR. PATIENT SITTING UP IN BED AND WITHOUT FURTHER NEEDS AT THIS TIME. CALL LIGHT AND PERSONAL BELONGINGS ARE WITHIN REACH.
--- NOTE | 2024-10-24 16:42 | NUR ---
PT WAS IN PAIN WHILE SITTING AND WALKING. GASOLINE TESTER CLEANED THE INSIDE OF PT'S THIGHS AND SHARON AREA, PT FELT LIKE SHE HAD URINATED DOWN HER LEGS WHEN SHE STOOD UP, BUT SHE HAD NOT. CLEANED THIS AREA WITH WARM WASH CLOTH, PT REPORTED NO PAIN DURING CLEANING. GOT PT BACK IN BED, WARM PACK ON STOMACH, SOCKS OFF, PT RESTING. CALL LIGHT WITHIN REACH OF PT AND LIGHTS TURNED DOWN. GOT PT FRESH ICE WATER. PT REPORTED NEEDING NOTHING ELSE AT THIS TIME.
--- NOTE | 2024-10-24 17:55 | NUR ---
PATIENT MEDICATED PER EMAR. PATIENT REPORTING "PAIN IS INCREASING AND I'M AFRAID TO COUGH". PATIENT REQUESTING PRN PAIN MEDICATION "WHEN I'M ABLE TO HAVE IT AGAIN". PATIENT CONTINUES TO USE HEAT PACK ON ABD AND STATES THAT IT DOES HELP MAKE THE PAIN TOLERABLE. PATIENT WITHOUT FURTHER NEEDS AT THIS TIME. CALL LIGHT AND PERSONAL BELONGINGS ARE WITHIN REACH.
--- NOTE | 2024-10-24 18:26 | NUR ---
PATIENT MEDICATED PER EMAR. FRESH ICE WATER PROVIDED. PATIENT WITHOUT FURTHER NEEDS AT THIS TIME. CALL LIGHT AND PERSONAL BELONGINGS ARE WITHIN REACH.
--- NOTE | 2024-10-24 19:07 | NUR ---
PT LAYING IN BED, HEAD UP, AWAKE AND ALERT, WATCHING TV. PTY REPORTED LESS COUGHING SO LESS PAIN. PT REPORTS BEING "OK" right now. CALL LIGHT WITHIN REACH. PT REPORTED NEEDING NOTHING ELSE AT THIS TIME.
--- NOTE | 2024-10-24 19:12 | NUR ---
RECEIVED REPORT. PT ALERT IN BED, REPORTS MILD ABDOMINAL PAIN, INCREASING WITH COUGH. DENIES NEEDS FOR NOW, REQUESTS TO KEEP UP WITH PAIN AND COUGH MEDICATIONS. CALL LIGHT IN REACH
--- NOTE | 2024-10-24 19:55 | NUR ---
SBA TO THE BATHROOM AND BACK TO BED. PATIENT DID PM ORAL CARE. NO FURTHER NEEDS AT THIS TIME.
[2024-10-24 19:59] LABS: BASOPHILS 0.4 % (0.1-1.2); EOSINOPHILS 2.4 % (0.7-5.8); HEMOGLOBIN 8.1 g/dL (11.2-15.7); LYMPHOCYTES 16.5 % (19.3-51.7); MCH 30.3 PG (25.6-32.2); MCHC 33.8 g/dL (32.2-35.5); MCV 89.9 fL (79.4-94.8); MONOCYTES 9.8 % (4.7-12.5); NEUTROPHILS 70.3 % (34.0-71.1); PLATELET COUNT 385 K/uL (182-369); RBC 2.67 M/uL (3.93-5.22)
[2024-10-24 20:10] LABS: ANION GAP 9.1 (7-21); BUN/CREATININE RATIO 24.32 (6.0-28.6); CALCIUM 8.7 mg/dL (8.5-10.1); CREATININE, SERUM 1.11 mg/dL (0.55-1.02); POTASSIUM 4.1 mmol/L (3.5-5.1)
[2024-10-24] MEDS ORDERED: LIDOCAINE PATCH REMOVAL 1 EA TD SCH (21:00)
--- NOTE | 2024-10-24 21:40 | NUR ---
ASSESSMENT, EVENING MEDS. GIVEN SANDWICH BOX AND REFRESHED ICE WATER. REPLACED HOT PACK FOR ABDOMEN, AND CHANGED LINENS. NO OTHER NEEDS, CALL LIGHT IN REACH
--- NOTE | 2024-10-24 22:55 | NUR ---
PT ALERT IN BED. REPORTS PAIN BEGINNING TO INCREASE. SUPPORTIVE MOM AT BEDSIDE. RESOURCE NURSE HELPFULLY OFFERS TO BRING TYLENOL AND COFFEE. NO OTHER NEEDS, CALL LIGHT NI REACH
--- NOTE | 2024-10-24 23:39 | NUR ---
PT ALERT IN BED, REFRESHED ICE IN WATER. NO OTHER NEEDS, CALL LIGHT IN REACH
--- NOTE | 2024-10-25 01:02 | NUR ---
PT ALERT IN BED. NO NEEDS PRESENTLY, DECLINES OFFER FOR TESSALON, BUT WOULD LIKE WITH OXYCODONE IN 1 HOUR. CALL LIGHT IN REACH
--- NOTE | 2024-10-25 01:56 | NUR ---
GIVEN PRN OXY 5MG AND TESSALON RADHA. REMOVED LIDOCAINE PATCH. NO OTHER NEEDS, CALL LIGHT INREACH
--- NOTE | 2024-10-25 03:40 | NUR ---
PT RESTING IN BED WITH EYES CLSOED, RISE AND FALL OF CHEST NOTED. CALL LGT IN REACH
[2024-10-25 05:17] LABS: BASOPHILS 0.4 % (0.1-1.2); HEMATOCRIT 23.9 % (34.1-44.9); LYMPHOCYTES 25.1 % (19.3-51.7); MCH 30.3 PG (25.6-32.2); MCHC 33.5 g/dL (32.2-35.5); MCV 90.5 fL (79.4-94.8); MONOCYTES 11.5 % (4.7-12.5); NEUTROPHILS 59.4 % (34.0-71.1); PLATELET COUNT 382 K/uL (182-369); RBC 2.64 M/uL (3.93-5.22)
[2024-10-25 05:27] VITALS: BP 162/75
[2024-10-25 05:35] LABS: ALBUMIN 2.8 g/dL (3.4-5.0); ALBUMIN/GLOBULIN RATIO 0.74 (1.1-2.4); ANION GAP 11.9 (7-21); BILIRUBIN, TOTAL 1.1 mg/dL (0.2-1.0); BUN/CREATININE RATIO 21.35 (6.0-28.6); CALCIUM 8.7 mg/dL (8.5-10.1); CREATININE, SERUM 1.03 mg/dL (0.55-1.02); POTASSIUM 3.9 mmol/L (3.5-5.1); PROTEIN, TOTAL 6.6 g/dL (6.4-8.2)
--- NOTE | 2024-10-25 06:00 | NUR ---
PT ALERT IN BED, DENIES NEEDS FOR NOW. CALL LIGHT IN REACH
--- NOTE | 2024-10-25 07:10 | NUR ---
REPORT FROM PHILIP ORELLANA.
[2024-10-25 07:35] VITALS: BP 162/75
--- NOTE | 2024-10-25 07:37 | NUR ---
MORNING ASSESSMENT IS COMPLETE. PATIENT IS RESTING IN BED, DENIES PAIN OR OTHER NEEDS. ABDOMINAL BINDER IS IN PLACE, READJUSTED PER PATIENT REQUEST FOR COMFORT. BRUISING TO ABDOMEN AND HIPS IS NOTED, AND IS IN THE PROCESS OF FADING. ZAPIEN CATHETER IS INTACT AND DRAINING CLEAR YELLOW URINE.
--- NOTE | 2024-10-25 08:43 | NUR ---
MORNING MEDICATIONS GIVEN. MIRALAX IN APPLEJUICE, PER PATIENT REQUEST. PATIENT UP TO BATHROOM WITH SBA TO DO HYGIENE AND UP TO CHAIR. WARM BLANKET PROVIDED.
[2024-10-25 08:58] VITALS: BP 125/56
--- NOTE | 2024-10-25 09:49 | NUR ---
HOURLY ROUNDING. PATIENT SITTING IN RECLINER RECIEVING MEDICATIONS FROM NURSE. NO REQUEST FROM PATIENT. BOARD HAS BEEN UPDATED AND VITALS ARE COMPLETED
--- NOTE | 2024-10-25 10:56 | NUR ---
PATIENT UP TO BATHROOM TO VOID. PO TYLENOL GIVEN FOR 4/10 ABDOMINAL DISCOMFORT. ROBITUSSIN COUGH MEDICATION GIVEN WELL. PATIENT IS BACK TO BED AND WATCHING TV.
--- NOTE | 2024-10-25 11:36 | NUR ---
PATIENT IS SLEEPING WITH REGULAR RESPIRATIONS.
--- NOTE | 2024-10-25 12:03 | NUR ---
HOURLY ROUNDING. PATIENT IS SLEEPING. NO REQUEST FROM PATIENT, WATER HAS BEEN FILLED
--- NOTE | 2024-10-25 12:31 | NUR ---
PT WALKED ONE LAP AROUND MED SURG. UTILIZED WALKER. TOLERATED ACTIVITY WITH NO COMPLICATIONS. PT RETURNED TO BED. PERSONAL BELONGINGS AND CALL LIGHT WITHIN REACH.
--- NOTE | 2024-10-25 12:38 | NUR ---
PATIENT GIVEN TESSALON PEARLES FOR COUGH, PATIENT REPORTS ABD PAIN IS 1/10 VERY MINIMAL. PATIENT IS, OTHERWISE, RESTING IN BED AND WATCHING TV.
[2024-10-25 13:00] VITALS: BP 122/52
[2024-10-25] MEDS ORDERED: LIDOCAINE PAIN1 EACH TD (14:05)
[2024-10-25] MEDS ORDERED: BENZONATATE100 MG PO (14:05)
[2024-10-25] MEDS ORDERED: GUAIFENESIN DM S5 ML PO (14:05)
--- NOTE | 2024-10-25 14:45 | NUR ---
In and spoke with Yuko. She would like to use [facility] for therapy. Daughter is in the room. Pt will be discharging to her home. Daughter states pt has 6 children and they will all be checking in on her. Daughter will go to [place] and pick pulling machine operator a walker and bath bench. PT/OT/bath aid are ordered from . Pt denies other needs. Home with daughter to transport her.
--- NOTE | 2024-10-25 15:20 | NUR ---
HOURLY ROUNDIMG. PATIENT HAS BEEN DISCHARGED. WHEELED TO THE CAR
--- NOTE | 2024-10-25 16:07 | NUR ---
Chart sent to [facility] as requested by pt for therapy. Bina from [facility] notified.
== END 2024-10-25 15:11 | disposition home or self-care (01) | DRG 813 ==
LOC: ED 11:30 → MS 13:06
PROVIDERS: Emergency Medicine; Family Medicine; ADMIT Student in an Organized Health Care Education/Training Program; ATTEND Student in an Organized Health Care Education/Training Program
PROC: 30233N1 Transfusion of Nonautologous Red Blood Cells into Peripheral Vein, Percutaneous Approach (ICD-10-PCS; principal; 2024-10-19)
DX: D68.32 Hemorrhagic disorder due to extrinsic circulating anticoagulants (principal); K66.1 Hemoperitoneum; N17.0 Acute kidney failure with tubular necrosis; N39.0 Urinary tract infection, site not specified; E87.1 Hypo-osmolality and hyponatremia; K62.5 Hemorrhage of anus and rectum; T45.515A Adverse effect of anticoagulants, initial encounter; I48.91 Unspecified atrial fibrillation; I10 Essential (primary) hypertension; K44.9 Diaphragmatic hernia without obstruction or gangrene; K86.89 Other specified diseases of pancreas; I25.10 Atherosclerotic heart disease of native coronary artery without angina pectoris; I77.1 Stricture of artery; E78.5 Hyperlipidemia, unspecified; E11.9 Type 2 diabetes mellitus without complications; D64.9 Anemia, unspecified; E66.9 Obesity, unspecified; N87.9 Dysplasia of cervix uteri, unspecified; K80.20 Calculus of gallbladder without cholecystitis without obstruction; J42 Unspecified chronic bronchitis; Z87.891 Personal history of nicotine dependence; Z90.710 Acquired absence of both cervix and uterus; Z90.49 Acquired absence of other specified parts of digestive tract; Z86.19 Personal history of other infectious and parasitic diseases; Z79.01 Long term (current) use of anticoagulants; Z79.51 Long term (current) use of inhaled steroids; Z79.84 Long term (current) use of oral hypoglycemic drugs; Z79.899 Other long term (current) drug therapy; Z88.1 Allergy status to other antibiotic agents
CPT/HCPCS: 36415; 36430; 51702; 51798; 71046; 71260; 74176; 74177; 76770; 80048; 80053; 81001; 81003; 82550; 82570; 83690; 83735; 83880; 83930; 83935; 84300; 85025; 85610; 86850; 86900; 86901; 86922; 94640; 94668; 94760; 94762; 94799; 97116; 97161; 97165; 97530; 97535; A9270; J1171; J1938; J2405; J7030; P9016; Q9967